=== PATIENT | female | born 1965 | race Caucasian/White ===

== ENCOUNTER 2018-04-06 05:40 | Observation (INO) | payer OTHER, MEDICAID, SELFPAY ==
[2018-04-06] MEDS: NS 1,000 ML IV (06:30)
[2018-04-06 07:04] LABS: BASO # 0.1 10^3/uL (0.0-0.2); BASO % 0.7 % (0.0-1.0); EOS # 0.2 10^3/uL (0.0-0.50); EOS % 2.3 % (0.0-3.0); HEMATOCRIT 45.2 % (36.0-47.0); HEMOGLOBIN 15.1 g/dl (12.0-15.5); IMMATURE GRANULOCYTE % 0.3 % (0-3.0); LYMPH # 1.6 10^3/uL (1.5-4.5); LYMPH % 15.7 % (24.0-44.0); MEAN CORPUSCULAR HEMOGLOBIN 30.6 pg (27.0-33.0); MEAN CORPUSCULAR HGB CONC 33.4 g/dl (32.0-36.5); MEAN CORPUSCULAR VOLUME 91.5 fl (80.0-96.0); MONO # 0.7 10^3/uL (0.0-0.8); MONO % 6.8 % (0.0-5.0); NEUTROPHILS # 7.4 10^3/uL (1.8-7.7); NEUTROPHILS % 74.2 % (36.0-66.0); PLATELET COUNT, AUTOMATED 283 10^3/uL (150-450); RED BLOOD COUNT 4.94 10^6/uL (4.00-5.40); RED CELL DISTRIBUTION WIDTH 13.4 % (11.5-14.5); WHITE BLOOD COUNT 9.9 10^3/uL (4.0-10.0)
[2018-04-06] MEDS: MORPHINE 2 MG/ML 1ML SYRINGE (J2270) IV (07:15)
[2018-04-06] MEDS: ONDANSETRON 4MG/2ML VIAL (J2405) IV (07:15)
[2018-04-06 07:18] LABS: INR 0.87; PROTHROMBIN TIME 11.9 SECONDS (12.1-14.4)
[2018-04-06 07:19] LABS: PARTIAL THROMBOPLASTIN TIME 28.1 SECONDS (25.4-37.6)
[2018-04-06 07:31] LABS: ANION GAP 7 MEQ/L (8-16); BLOOD UREA NITROGEN 15 MG/DL (7-18); CALCIUM LEVEL 9.7 MG/DL (8.5-10.1); CARBON DIOXIDE LEVEL 26 MEQ/L (21-32); CHLORIDE LEVEL 108 MEQ/L (98-107); CPK CREATINE PHOSPHOKINASE 69 U/L (26-192); CREATININE FOR GFR 0.79 MG/DL (0.55-1.30); GLOMERULAR FILTRATION RATE > 60.0 (>51); GLUCOSE, FASTING 116 MG/DL (70-100); MB/CK RELATIVE INDEX 1.74 (< OR =4); POTASSIUM SERUM 4.2 MEQ/L (3.5-5.1); SODIUM LEVEL 141 MEQ/L (136-145); TROPONIN I < 0.02 NG/ML (< 0.10)
[2018-04-06] MEDS ORDERED: ISOVUE-370 76% 100ML VIAL (Q9967) As Ordered (07:43)
[2018-04-06] MEDS: MORPHINE 4 MG/ML 1ML VIAL/SYRINGE (J2270) IV ×4 (08:15→20:14)
[2018-04-06 08:55] LABS: ESTIMATED AVERAGE GLUCOSE 114 MG/DL (60-110); HEMOGLOBIN A1c 5.6 %
[2018-04-06 08:56] LABS: ERYTHROCYTE SEDIMENTATION RATE 4 mm/hr (0-30)
[2018-04-06] MEDS ORDERED: METAL LOCK LOOP XX (08:58)
[2018-04-06 09:51] LABS: CHOLESTEROL LEVEL 190 MG/DL (<200); CHOLESTEROL RISK RATIO 3.454 (<5); HDL CHOLESTEROL 55 MG/DL (>40); LDL CHOLESTEROL 115 MG/DL (<100); NON-HDL-C 135 MG/DL; TRIGLYCERIDES LEVEL 100 MG/DL (<150)
[2018-04-06] MEDS ORDERED: ONDANSETRON 4MG/2ML VIAL (J2405) IV (10:15)
[2018-04-06] MEDS ORDERED: BISACODYL 10 MG SUPP PR (10:15)
[2018-04-06] MEDS ORDERED: IBUPROFEN 600 MG TAB PO (10:15)
[2018-04-06] MEDS ORDERED: KETOROLAC 30 MG/ML VIAL (J1885) As Ordered (10:40)
[2018-04-06] MEDS: KETOROLAC 30 MG/ML VIAL (J1885) IV (10:51)
[2018-04-06] MEDS: ATORVASTATIN 20 MG TAB PO (13:33)
[2018-04-06] MEDS: amLODIPine 10 MG TAB PO (13:33)
[2018-04-06] MEDS: ASPIRIN 81 MG ENTERIC TAB PO (13:33)
[2018-04-06] MEDS: ENOXAPARIN 40 MG/0.4 ML SYRINGE (J1650) SC (13:33)
[2018-04-06] MEDS: NICOTINE POLACRILEX 2 MG GUM PO ×3 (15:02→20:15)
[2018-04-06] MEDS: CYCLOBENZAPRINE 5MG TABLET PO ×2 (15:36→22:11)
[2018-04-06 16:19] LABS: AMYLASE 54 U/L (25-115)
[2018-04-07] MEDS: MORPHINE 4 MG/ML 1ML VIAL/SYRINGE (J2270) IV ×3 (00:30→09:50)
[2018-04-07 01:54] LABS: KETONE, URINE AUTO RFX NEGATIVE (NEGATIVE); NITRITE, URINE AUTO RFX NEGATIVE (NEGATIVE); RBC, URINE AUTO RFX 2 /HPF (0-3); SQUAM EPITHELIAL CELL UR AURFX 0 /HPF (0-6); WBC, URINE AUTO RFX 4 /HPF (0-3)
[2018-04-07 02:22] LABS: LEUKOCYTE ESTERASE UR AUTO RFX TRACE (NEGATIVE)
[2018-04-07] MEDS: CYCLOBENZAPRINE 5MG TABLET PO (05:05)
[2018-04-07] MEDS: NICOTINE POLACRILEX 2 MG GUM PO (05:31)
[2018-04-07 05:49] LABS: HEMOGLOBIN 14.4 g/dl (12.0-15.5); MEAN CORPUSCULAR HEMOGLOBIN 31.1 pg (27.0-33.0); MEAN CORPUSCULAR HGB CONC 32.7 g/dl (32.0-36.5); PLATELET COUNT, AUTOMATED 250 10^3/uL (150-450); RED BLOOD COUNT 4.63 10^6/uL (4.00-5.40); RED CELL DISTRIBUTION WIDTH 13.5 % (11.5-14.5); WHITE BLOOD COUNT 6.2 10^3/uL (4.0-10.0)
[2018-04-07 06:15] LABS: ANION GAP 2 MEQ/L (8-16); BLOOD UREA NITROGEN 15 MG/DL (7-18); CALCIUM LEVEL 9.4 MG/DL (8.5-10.1); CARBON DIOXIDE LEVEL 30 MEQ/L (21-32); CHLORIDE LEVEL 109 MEQ/L (98-107); GLOMERULAR FILTRATION RATE > 60.0 (>51); GLUCOSE, FASTING 82 MG/DL (70-100); POTASSIUM SERUM 4.8 MEQ/L (3.5-5.1); SODIUM LEVEL 141 MEQ/L (136-145)
[2018-04-07] MEDS: ASPIRIN 81 MG ENTERIC TAB PO (09:47)
[2018-04-07] MEDS: ATORVASTATIN 20 MG TAB PO (09:47)
[2018-04-07] MEDS: amLODIPine 10 MG TAB PO (09:48)
[2018-04-07] MEDS: ENOXAPARIN 40 MG/0.4 ML SYRINGE (J1650) SC (09:49)
[2018-04-07] MEDS: KETOROLAC 30 MG/ML VIAL (J1885) IV (10:28)
[2018-04-11] MEDS ORDERED: IBUPROFEN 600 MG TAB PO (10:45)
== END 2018-04-07 11:44 | disposition home or self-care (01) ==
LOC: M ED 05:40 → M ED INP 10:08 → M PCU 11:25
DX: G43.909 Migraine, unspecified, not intractable, without status migrainosus (principal); M50.90 Cervical disc disorder, unspecified, unspecified cervical region; M51.36 Other intervertebral disc degeneration, lumbar region; Z98.1 Arthrodesis status; I25.10 Atherosclerotic heart disease of native coronary artery without angina pectoris; F17.210 Nicotine dependence, cigarettes, uncomplicated; Z79.82 Long term (current) use of aspirin; Z79.899 Other long term (current) drug therapy
CPT/HCPCS: J2270